=== PATIENT | female | born 2000 | race Caucasian/White ===

== ENCOUNTER 2024-10-25 07:29 | Emergency (ER) | payer OTHER ==
[~2024-10-25] VITALS: Ht 162.6 cm; Wt 70.0 kg
[2024-10-25 07:34] VITALS: O2SAT 98
[2024-10-25] MEDS: LEVETIRACETAM 1000MG PREMIX 100 ML IV ONE (07:45)
[2024-10-25] MEDS: SODIUM CHLORIDE 0.9% 1,000 ML IV ONE (07:45)
[2024-10-25 08:09] LABS: BASOPHILS % 0.3 % (0.0-2.0); EOSINOPHILS % 0.7 % (0.0-5.0); HEMATOCRIT. 38.9 % (36.0-48.0); HEMOGLOBIN. 12.9 g/dL (12.0-16.0); LYMPHOCYTES % 20.5 % (20.0-50.0); MEAN CORPUSCULAR HEMOGLOBIN 29.8 pg (28.0-32.0); MEAN CORPUSCULAR HGB CONC 33.2 g/dL (31.0-37.0); MEAN CORPUSCULAR VOLUME 89.6 fL (81.0-99.0); MEAN PLATELET VOLUME 7.6 fl (7.4-10.4); MONOCYTES % 4.4 % (2.0-8.0); NEUTROPHILS % 74.1 % (40.0-76.0); PLATELET 322 x1000/uL (130-400); RED BLOOD CELL COUNT 4.34 mill/uL (4.2-5.4); RED CELL DISTRIBUTION WIDTH 12.9 % (11.6-14.6); WHITE BLOOD COUNT 9.3 x1000/uL (4.5-11.0)
[2024-10-25 08:23] LABS: CHLORIDE 105 mEq/L (98-107); INR 0.9; POTASSIUM 3.8 mEq/L (3.5-5.1); PROTHROMBIN TIME 10.6 sec (9.6-11.0); SODIUM 140 mEq/L (136-145)
[2024-10-25 08:24] LABS: CALCIUM 9.5 mg/dL (8.7-10.4); CARBON DIOXIDE 28 mEq/L (21-32)
[2024-10-25 08:29] LABS: CREATININE 0.7 mg/dL (0.6-1.0); GLUCOSE 117 mg/dL (70-105); UREA NITROGEN BLOOD 10 mg/dL (9-23)
[2024-10-25 08:31] LABS: LACTIC ACID 2.4 mmol/L (0.4-2.0)
[2024-10-25 08:34] LABS: THYROID STIMULATING HORMONE 1.56 uIU/mL (0.55-4.78)
[2024-10-25 08:38] LABS: HCG SCREEN NEGATIVE
[2024-10-25 08:42] LABS: ETHANOL BLOOD < 10 mg/dL (<10)
[2024-10-25 10:11] LABS: CLARITY URINE CLEAR (CLEAR); COLOR URINE YELLOW (YELLOW); GLUCOSE URINE NEGATIVE (NEGATIVE); KETONES URINE NEGATIVE (NEGATIVE); LEUKOCYTE ESTERASE URINE 1+ (NEGATIVE); NITRITE URINE NEGATIVE (NEGATIVE); OCCULT BLOOD URINE NEGATIVE (NEGATIVE); PROTEIN URINE 1+ (NEGATIVE); SPECIFIC GRAVITY URINE 1.018 (1.005-1.030); UROBILINOGEN URINE 0.2 E.U./dL (0.2-1.0)
[2024-10-25 10:22] LABS: *AMPHETAMINES SCREEN URINE NEGATIVE (NEGATIVE); *BARBITURATES SCREEN URINE NEGATIVE (NEGATIVE); *BENZODIAZEPINES SCREEN URINE NEGATIVE (NEGATIVE); *COCAINE SCREEN URINE NEGATIVE (NEGATIVE); CANNABINOID URINE SCREEN NEGATIVE (NEGATIVE); ECSTASY MDMA SCREEN URINE NEGATIVE (NEGATIVE); METHADONE URINE SCREEN NEGATIVE (NEGATIVE); OPIATES URINE SCREEN NEGATIVE (NEGATIVE); PHENCYCLIDINE URINE SCREEN NEGATIVE (NEGATIVE)
[2024-10-25 10:52] LABS: SQUAMOUS EPITHELIAL CELL URINE 1+ /lpf (RARE/1+)
[2024-10-25 10:53] LABS: BACTERIA URINE 1+; MUCUS URINE TRACE /lpf (< = 2+)
[2024-10-25 10:54] LABS: RBC URINE NONE SEEN /hpf (0-2)
[2024-10-25] MEDS ORDERED: NITR-87 MT (10:59)
[2024-10-25 11:40] VITALS: BP 110/65; PULSE 88; RESP 12; TEMP 36.66960; O2SAT 97
== END 2024-10-25 12:12 | disposition home or self-care (01) ==
LOC: ER 07:49
DX: R56.9 Unspecified convulsions (principal); R55 Syncope and collapse; F10.90 Alcohol use, unspecified, uncomplicated; Y90.9 Presence of alcohol in blood, level not specified
CPT/HCPCS: 80305; 80048; 81003; 80320; 84703; 83605; 84443; 85025; 85610; 36415; 70450; 96365; 99285; J1953; J7030; Z7610; A4663; G0480

== ENCOUNTER 2025-04-04 07:31 | Emergency (ER) | payer OTHER ==
[~2025-04-04] VITALS: Ht 157.5 cm; Wt 70.0 kg
[~2025-04-04 07:31] MED LIST: NITR-87 MT
[2025-04-04 07:45] VITALS: O2SAT 98
[2025-04-04 08:30] LABS: HEMOGLOBIN. 13.3 g/dL (12.0-16.0); MEAN CORPUSCULAR HEMOGLOBIN 29.5 pg (28.0-32.0); MEAN CORPUSCULAR HGB CONC 33.1 g/dL (31.0-37.0); MEAN PLATELET VOLUME 7.5 fl (7.4-10.4); PLATELET 239 x1000/uL (130-400); RED BLOOD CELL COUNT 4.49 mill/uL (4.2-5.4); RED CELL DISTRIBUTION WIDTH 13.5 % (11.6-14.6); WHITE BLOOD COUNT 13.1 x1000/uL (4.5-11.0)
[2025-04-04 08:31] LABS: DIFFERENTIAL COMMENT 1
[2025-04-04 08:38] LABS: CARBON DIOXIDE 26 mEq/L (21-32); CHLORIDE 99 mEq/L (98-107); POTASSIUM 3.9 mEq/L (3.5-5.1); SODIUM 137 mEq/L (136-145)
[2025-04-04 08:39] LABS: CALCIUM 9.3 mg/dL (8.7-10.4)
[2025-04-04 08:44] LABS: CREATININE 0.7 mg/dL (0.6-1.0); GLUCOSE 97 mg/dL (70-105); UREA NITROGEN BLOOD 5 mg/dL (9-23)
[2025-04-04 08:46] LABS: ALANINE AMINOTRANSFERASE 23 IU/L (10-49); ALBUMIN 4.7 g/dL (3.2-4.8); ASPARTATE AMINOTRANSFERASE 21 IU/L (<34); BILIRUBIN DIRECT 0.3 mg/dL (<=3.0); BILIRUBIN TOTAL 0.8 mg/dL (0.1-1.0); PROTEIN TOTAL 7.5 g/dL (6.0-8.3)
[2025-04-04 08:50] LABS: HCG SCREEN NEGATIVE
[2025-04-04 08:52] LABS: INR 1.1
[2025-04-04 09:03] LABS: CLARITY URINE CLEAR (CLEAR); COLOR URINE YELLOW (YELLOW); GLUCOSE URINE NEGATIVE (NEGATIVE); KETONES URINE 2+ (NEGATIVE); LEUKOCYTE ESTERASE URINE 1+ (NEGATIVE); NITRITE URINE NEGATIVE (NEGATIVE); OCCULT BLOOD URINE 1+ (NEGATIVE); PROTEIN URINE 1+ (NEGATIVE); SPECIFIC GRAVITY URINE 1.017 (1.005-1.030); UROBILINOGEN URINE 0.2 E.U./dL (0.2-1.0)
[2025-04-04 09:06] LABS: PLATELET ESTIMATE NORMAL
[2025-04-04] MEDS: ACETAMINOPHEN 325MG TABLET PO STA (09:14)
[2025-04-04] MEDS: METOCLOPRAMIDE HCL 10MG/2ML VIAL IV ONE (09:14)
[2025-04-04] MEDS: SODIUM CHLORIDE 0.9% 1,000 ML IV ONE (09:14)
[2025-04-04] MEDS: KETOROLAC 30MG/ML VIAL IV STA (09:14)
[2025-04-04 09:20] LABS: BACTERIA URINE TRACE; RBC URINE 0-2 /hpf (0-2); SQUAMOUS EPITHELIAL CELL URINE 1+ /lpf (RARE/1+); YEAST URINE NONE SEEN
[2025-04-04] MEDS: MAGNESIUM/ALUMINUM HYDROXIDE/SIMETHICONE 30ML UDC PO ONE (10:18)
[2025-04-04] MEDS: FAMOTIDINE 20MG TABLET PO ONE (10:18)
[2025-04-04] MEDS ORDERED: FAMO-135 MT (10:43)
[2025-04-04] MEDS ORDERED: ONDA4TAB50 MT (10:43)
[2025-04-04 10:54] VITALS: BP 129/75; PULSE 106; RESP 18; TEMP 37.3; O2SAT 98
== END 2025-04-04 10:55 | disposition home or self-care (01) ==
LOC: ER 07:44
DX: R11.2 Nausea with vomiting, unspecified (principal); R00.0 Tachycardia, unspecified; I63.9 Cerebral infarction, unspecified
CPT/HCPCS: 99284; 96374; 96361; 96375; 80076; 80048; 81003; 81025; 84703; 83690; 85025; 85610; 36415; 93005; J1885; J2765; J7030